=== PATIENT | male | born 1950 | race Caucasian/White ===

== ENCOUNTER 2022-02-05 17:33 | Emergency (ER) | payer MEDICARE, MEDICAID, SELFPAY ==
[2022-02-05 18:10] VITALS: BP 136/73; PULSE 54; RESP 16; TEMP 36.7; O2SAT 97; BMI 22.5
--- NOTE | 2022-02-05 20:34 | CTR_ITS ---
PROCEDURE INFORMATION: Exam: CT Abdomen And Pelvis Without Contrast Exam date and time: 02/05/2022 8:55 PM Age: 71 years old Clinical indication: Abdominal pain; Generalized; Prior surgery; Surgery date: 6+ months; Surgery type: Hernia repair. Appy. ; Patient HX: Sent by pcp for elevated creatinine. C/O diffuse abd pain. TECHNIQUE: Imaging protocol: Computed tomography of the abdomen and pelvis without contrast. Radiation optimization: All CT scans at this facility use at least one of these dose optimization techniques: automated exposure control; mA and/or kV adjustment per patient size (includes targeted exams where dose is matched to clinical indication); or iterative reconstruction. COMPARISON: CR Chest 1 [place] [id number] 09/11/2019 11:44 AM RADIATION DOSE METRICS: Total DLP (mGy-cm): 635.98 FINDINGS: Liver: Normal. No mass. Gallbladder and bile ducts: Normal. No calcified stones. No ductal dilation. Pancreas: Normal. No ductal dilation. Spleen: Calcified splenic granulomas. Adrenal glands: Normal. No mass. Kidneys and ureters: Normal. No hydronephrosis. Stomach and bowel: Unremarkable. No obstruction. No mucosal thickening. Appendix: No evidence of appendicitis. Intraperitoneal space: Unremarkable. No free air. No significant fluid collection. Vasculature: Calcification of the abdominal aorta and/or iliac arteries consistent with atherosclerotic vessel disease. Lymph nodes: Calcified right hilar nodes and/or mediastinal nodes and/or lung granulomas consistent with old granulomatous disease. Urinary bladder: Unremarkable as visualized. Reproductive: Unremarkable as visualized. Bones/joints: Grade 1 anterior non-spondylitic spondylolisthesis of L4 on L5 with central spinal stenosis and prominent facet degenerative changes. Idiopathic S-shaped scoliosis. Soft tissues: Unremarkable. CT/CT kidney stone [id number] IMPRESSION: No acute findings.
--- NOTE | 2022-02-05 20:37 | W.ED.ABDPA2 ---
HPI - Abdominal Pain General: Chief Complaint: Abdominal Pain Stated Complaint: send by PCP for low kidney function Time Seen by Provider: 02/05/22 20:28 Source: patient Mode of arrival: ambulatory Limitations: no limitations History of Present Illness: 71-year-old male who states that over the last 2 days has been having episodic abdominal pains. He states been sharp pains in the center of his abdomen he states that currently is resolved not having any pain. States he saw his PCP yesterday though and his PCP nehemiah blood work called him and told him to come up here as his kidney function showed an elevated creatinine. He has had no vomiting no diarrhea denies any chest pain or fever he states he noticed some blood in his urine Associated Symptoms: Denies chills, diarrhea, dysuria, fever(s), nausea and vomiting Review of Systems Const: Denies: fever(s), chills, body aches or change in appetite Eyes: Denies: blurry vision or eye discomfort ENMT: Denies: throat pain or dental pain Card: Denies: chest pain Resp: Denies: dyspnea GI: Reports: abdominal pain; Denies: nausea, vomiting or diarrhea : Denies: dysuria Musc: Denies: neck pain or back pain Skin/Breast: Denies: rash Neuro: Denies: headache(s) Psych: Denies: depression Maurciio/Lymph: Denies: easy bruising All/Imm: Denies: urticaria PFSH ED PFSH: Medical History No pertinent past medical history Social History Substance/Drug Use: former Physical Exam Const: COMMON NORMALS: no acute distress, patient oriented x3 and healthy appearing HENMT: COMMON NORMALS: normocephalic and atraumatic HEAD & SCALP: normocephalic and atraumatic Eye: COMMON NORMALS: Equal, round and reactive pupils present and EOMs intact bilaterally PUPIL: Yes Equal, round and reactive pupils present Neck/C-Spine: COMMON NORMALS: full ROM and supple Chest: COMMONS NORMALS: normal inspection of the chest and normal palpation of entire chest wall Resp: COMMON NORMALS: normal respiratory effort, No retractions, No use of accessory muscles and clear to auscultation bilaterally AUSCULTATION: clear to auscultation bilaterally Cardio: COMMON NORMALS: regular rate, regular rhythm and No murmurs present (Cardio) RATE: regular rate RHYTHM: regular rhythm GI: COMMON NORMALS: Normal to inspection, nondistended, normoactive bowel sounds present, Soft to palpation, non-tender and no masses PALPATION: Yes Soft to palpation Extremity: COMMON NORMALS: normal to inspection and full ROM Neuro: COMMON NORMALS: patient oriented x3, moves all extremities and no focal motor deficits Psych: COMMON NORMALS: mental status grossly normal, Normal thought process present and cooperative THOUGHT PROCESS: Normal thought process present Skin: COMMON NORMALS: no rashes or lesions noted and no wounds GENERAL SKIN EXAM: no rashes or lesions noted Course Vital Signs: Vital signs: Vital Signs Temperature 98.0 F 02/05/22 18:10 Pulse Rate 54 L 02/05/22 20:56 Respiratory Rate 18 02/05/22 20:56 Blood Pressure 148/93 02/05/22 20:56 Pulse Oximetry 98 02/05/22 20:56 MDM - Abdominal Pain Medical Decision Making Patient presents for some abdominal pain CT showed no acute findings he does have some hematuria creatinine is mildly elevated he has no signs of acute renal failure potassium is normal he is able to urinate without any difficulty we will get him follow-up with urology for his hematuria and nephrology he is stable for discharge return if worsening. Lab Data : 02/05/22 20:43 02/05/22 20:43 Labs/Radiology: Radiology Impressions Abdomen/Pelvis CT 02/05/22 20:34 IMPRESSION: No acute findings. Laboratory Results WBC 6.7 10^3/uL (4.0-10.0) 02/05/22 20:43 RBC 4.16 10^6/uL (4.1-5.3) 02/05/22 20:43 Hgb 13.4 g/dL (11.7-16.6) 02/05/22 20:43 Hct 40.4 % (42.0-52.0) L 02/05/22 20:43 MCV 97.1 fl (80-94) H 02/05/22 20:43 MCH 32.2 pg (28.0-34.0) 02/05/22 20:43 MCHC 33.2 g/dL (30.0-36.0) 02/05/22 20:43 RDW 13.2 % (12.1-15.1) 02/05/22 20:43 Plt Count 268 10^3/cmm (130-400) 02/05/22 20:43 MPV 10.1 fL (7.4-10.4) 02/05/22 20:43 Neut % (Auto) 54.3 % 02/05/22 20:43 Lymph % (Auto) 31.3 % 02/05/22 20:43 [place] % (Auto) 6.9 % 02/05/22 20:43 Eos % (Auto) 5.9 % 02/05/22 20:43 Baso % (Auto) 1.1 % 02/05/22: Neut # (Auto) 3.62 10^3/uL (1.8-7.7) 02/05/22 20:43 Lymph # (Auto) 2.1 10^3/uL (0.8-4.8) 02/05/22 20:43 [place] # (Auto) 0.5 10^3/uL (0.2-0.9) 02/05/22 20:43 Eos # (Auto) 0.4 10^3/uL (0.0-0.8) 02/05/22 20:43 Baso # (Auto) 0.1 10^3/uL (0.0-0.1) 02/05/22 20:43 Nucleated RBC % (auto) 0 % 02/05/22 20: Nucleated RBCs # 0.0 /100WBC 02/05/22 20:43 Sodium 138 mmol/L (136-145) 02/05/22 20:43 Potassium 4.0 mmol/L (3.5-5.1) 02/05/22 20:43 Chloride 102 mmol/L (98-107) 02/05/22 20:43 Carbon Dioxide 23 mmol/L (22-29) 02/05/22 20:43 Anion Gap 17.0 (5-19) 02/05/22 20:43 BUN 17 mg/dL (8-23) 02/05/22 20:43 Creatinine 2.5 mg/dL (0.7-1.2) H 02/05/22 20:43 GFR Calculation 25.7 mL/min (90-130) L 02/05/22 20:43 Glucose 88 mg/dL (65-115) 02/05/22 20:43 Calculated Osmolality 287 mOsm/kg (285-295) 02/05/22 20:43 Calcium 8.7 mg/dL (8.5-10.5) 02/05/22 20:43 Total Bilirubin 0.5 mg/dL (0.15-1.2) 02/05/22 20:43 AST 41 U/L (0-40) H 02/05/22 20:43 ALT 13 U/L (0-41) 02/05/22 20:43 Alkaline Phosphatase 105 IU/L (40-130) 02/05/22 20:43 Total Protein 7.6 g/dL (6.6-8.7) 02/05/22 20:43 Albumin 4.6 g/dL (3.5-5.2) 02/05/22 20:43 Globulin 3.0 g/dL (1.3-4.6) 02/05/22 20:43 Lipase 40 U/L (13-60) 02/05/22 20:43 Urine Color Yellow (Yellow) 02/05/22 21:39 Urine Appearance Clear (CLEAR) 02/05/22 21:39 Urine pH 5 (5-7) 02/05/22 21:39 Ur Specific [place] 1.015 (1.005-1.030) 02/05/22 21:39 Urine Protein Neg (Negative) 02/05/22 21:39 Urine Glucose (UA) Norm (Normal) 02/05/22 21:39 Urine Ketones Negative (Negative) 02/05/22 21:39 Urine Blood 2+ (Negative) H 02/05/22 21:39 Urine Nitrate Negative (Negative) 02/05/22 21:39 Urine Bilirubin Neg (Negative) 02/05/22 21:39 Urine Urobilinogen Norm mg/dL (Negative) 02/05/22 21:39 Ur Leukocyte Esterase Negative (Negative) 02/05/22 21:39 Amorphous Sediment Not Reportable 02/05/22 21:39 Discharge Plan Discharge Patient Disposition: Home Clinical Impression: Abdominal pain, Creatinine elevation, Hematuria Discharge Orders: Discharge ED (Routine); Ordered 02/05/22 Ordered By: Marivel Elizalde Referrals: Ronnie Mckeon MD [Physician] - 1-3 days Amos Parker MD [Primary Care Provider] - 1-3 days Discharge Diet: Advance as tolerated Discharge Activity: Resume usual activity Patient Instructions: Abdominal Pain (ED) Coding Level of Care Code ED Geological Manager for Chg Fwd Exam Comprehensive
[2022-02-05 20:48] LABS: Basophils # 0.1 10^3/uL (0.0-0.1); Basophils % 1.1 %; Eosinophils # 0.4 10^3/uL (0.0-0.8); Eosinophils % 5.9 %; Hematocrit 40.4 % (42.0-52.0); Hemoglobin 13.4 g/dL (11.7-16.6); Lymphocytes # 2.1 10^3/uL (0.8-4.8); Lymphocytes % 31.3 %; Mean Corpuscular HGB Conc 33.2 g/dL (30.0-36.0); Mean Corpuscular Hemoglobin 32.2 pg (28.0-34.0); Mean Corpuscular Volume 97.1 fl (80-94); Mean Platelet Volume 10.1 fL (7.4-10.4); Monocytes # 0.5 10^3/uL (0.2-0.9); Monocytes % 6.9 %; Neutrophils # 3.62 10^3/uL (1.8-7.7); Neutrophils % 54.3 %; Nucleated Red Blood Cells % 0 %; Platelet Count 268 10^3/cmm (130-400); Red Blood Count 4.16 10^6/uL (4.1-5.3); Red Cell Distribution Width 13.2 % (12.1-15.1); White Blood Count 6.7 10^3/uL (4.0-10.0)
[2022-02-05 20:56] VITALS: BP 148/93; PULSE 54; RESP 18; O2SAT 98
[2022-02-05 21:06] LABS: Alanine Aminotransferase 13 U/L (0-41); Albumin Level 4.6 g/dL (3.5-5.2); Alkaline Phosphatase 105 IU/L (40-130); Aspartate Amino Transferase 41 U/L (0-40); Blood Urea Nitrogen 17 mg/dL (8-23); Calcium 8.7 mg/dL (8.5-10.5); Carbon Dioxide 23 mmol/L (22-29); Chloride 102 mmol/L (98-107); Glomerular Filtration Rate 25.7 mL/min (90-130); Glucose 88 mg/dL (65-115); Lipase 40 U/L (13-60); Osmolality Calculated 287 mOsm/kg (285-295); Sodium 138 mmol/L (136-145); Total Bilirubin 0.5 mg/dL (0.15-1.2); Total Protein 7.6 g/dL (6.6-8.7)
[2022-02-05] MEDS: sodium chloride 0.9% 1,000 ML 999 ML IV ×2 (21:40→21:48)
[2022-02-05 22:04] LABS: Add Urine Microscopic? YES; Bilirubin Urine Neg (Negative); Blood Urine 2+ (Negative); Glucose Urine UA Norm (Normal); Ketones Urine Negative (Negative); Leukocyte Esterase Urine Negative (Negative); Nitrate Urine Negative (Negative); Protein Urine Neg (Negative); Specific Gravity, Urine 1.015 (1.005-1.030); Urine Appearance Clear (CLEAR); Urine Color Yellow (Yellow); Urobilinogen Urine Norm (Negative); pH Urine 5 (5-7)
[2022-02-05 22:12] LABS: Add Urine Culture? No; Bacteria Urine TRACE /hpf; RBC Urine 0-4 /hpf (0-2); Squamous Epithelial Cell Urine 0-4 /hpf (0-5); WBC Urine 0-4 /hpf (0-5)
[2022-02-05 22:44] VITALS: BP 124/68; PULSE 77; RESP 16; O2SAT 99
--- NOTE | 2022-02-06 10:25 | DCPLANNER ---
Addendum entered by Kelly Borrego 04/30/22 10:15: Patient had a follow up appointment scheduled with urology - patient did attend appointment. Addendum entered by Kelly Borrego 03/09/22 09:40: Patient has a follow up appointment scheduled for Sunday, April 17, 2022 at 8:[address] Mckeon at urology. Clinic will call patient with appointment information. Original Note: manager imaging had message to schedule a follow up appointment for patient with urology. manager imaging sent patients information to the front office staff at urology. Patients information will be printed and reviewed. Clinic will call patient with appointment information.
== END 2022-02-05 22:45 | disposition home or self-care (01) ==
PROVIDERS: Emergency Provider Emergency Medicine; PCP Family Medicine
DX: R10.9 Unspecified abdominal pain (principal); R94.4 Abnormal results of kidney function studies; R31.9 Hematuria, unspecified
CPT/HCPCS: 74176; 80053; 81001; 83690; 85025; 96360; 96361; 99284; J7030

== ENCOUNTER 2022-03-09 17:15 | Inpatient (IN) | payer MEDICARE, MEDICAID, SELFPAY ==
[2022-03-09 17:22] VITALS: BP 139/72; PULSE 62; RESP 18; TEMP 36.3; O2SAT 98
--- NOTE | 2022-03-09 19:37 | ED_ITS ---
HPI - General Adult General: Chief complaint: General Medical Stated complaint: dizziness and right side pain Time Seen by Provider: 03/09/22 19:37 History of Present Illness: Mr. Burnham is a 71-year-old gentleman with history of COPD who presents to the emergency department due to generalized symptoms. Symptom onset was gradual approximately 3 days ago. He endorses feeling dizziness which she describes as an off-balance sensation as well as right-sided flank stinging sensation without significant radiation. He reports adequate oral intake without changes in bowel movement or emesis. He has had similar episodes in the past associated with elevated creatinine. Overall co urse of symptoms has worsened. Intensity is moderate to severe. Denies known history of CKD. No other specific changes in health, exacerbating, or alleviating factors identified. Onset (ago): day(s) Severity: moderate Quality: other Pain Consistency: constant Relieving factors: none Exacerbating factors: none Associated symptoms: Reports malaise and other Review of Systems General: Reports: 10 or more systems reviewed and unremarkable except in HPI and below Const: Reports: malaise PFSH ED PFSH: Medical History Alcohol use disorder, moderate, in sustained remission Hematuria Tobacco use disorder Surgical History History of appendectomy Family History Father Alzheimer's dementia Cancer Social History Smoking and tobacco status: current every day smoker Alcohol intake: former Substance/Drug Use: never Physical Exam Const: COMMON NORMALS: patient oriented x3 and alert GENERAL APPEARANCE: cooperative and well developed HENMT: COMMON NORMALS: normocephalic and atraumatic HEAD & SCALP: normocephalic and atraumatic Eye: COMMON NORMALS: conjunctivae normal CONJUNCTIVA: Yes conjunctivae normal SCLERA: sclerae normal Neck/C-Spine: COMMON NORMALS: supple GENERAL: Yes trachea midline Resp: COMMON NORMALS: normal respiratory effort EFFORT & INSPECTION: Yes a ble to speak in complete sentences AUSCULTATION: diminished lung sounds Cardio: COMMON NORMALS: regular rate and regular rhythm RATE: regular rate RHYTHM: regular rhythm GI: COMMON NORMALS: Soft to palpation PALPATION: Yes Soft to palpation, Yes Tenderness to palpation present (GI), No Guarding due to palpation present (GI) and No Rigid due to palpation PERCUSSION: normal to percussion Extremity: GENERAL: Yes normal exam except as noted and No edema Neuro: COMMON NORMALS: patient oriented x3, CN's II-XII intact bilaterally, moves all extremities, no focal motor deficits and no sensory deficits noted SENSORIUM/ORIENTATION: Yes alert and No Orientation impaired Psych: COMMON NORMALS: mental status grossly normal and Normal thought process present THOUGHT PROCESS: Normal thought process present Course ED course: - Patient was seen and evaluated by me at bedside - Patient placed on cardiac monitors, IV access obtained - Initial evaluation notable for exam as above. Bradycardia of unclear etiology - Labs personally interpreted by me - Labs notable for no significant hematologic abnormality. No electrolyte abnormality on metabolic panel however creatinine is significantly elevated from previous and there is evidence of metabolic stress which is mild. Hematuria persists with no evidence of urinary tract infection. - Imaging notable for negative head CT and renal stone protocol abdominal/pelvis CT. - Upon serial reexamination after treatment the patient was similar - Based on patient history, evaluation, and testing as interpreted the most likely cause of the patient's condition is KAREN on CKD of unclear etiology - The results of ED evaluation were discussed with the patient including plan for admission due to requirement for level of care not available if discharged to prevent significant worsening/deterioration. - Admitting service was contacted and Dr Reich with the hospitalist service agreed to admit the patient - Patient was admitted without further deterioration or significant events. Note: Click bubbles or prepopulated silva in note writing are used for assistance with data collection and billing and are inherently more limited than narrative and other text portions of this note. Please use narrative for additional clinical history and defer to narrative/free test for any case of contradictory information. If information appears in only free text or click bubble it should be considered present or absent as reported. Please contact note data analyst report writer for clarifications of clinical information or contradictory information. MDM is a brief summary, contradictory or erroneous seeming information should be clarified and full note should be reviewed. Vital Signs: Vital signs: Vital Signs Temperature 97.3 F L 03/09/22 17:22 Pulse Rate 45 L 03/10/22 00:05 Respiratory Rate 15 03/10/22 00:05 Blood Pressure 152/79 03/10/22 00:05 Pulse Oximetry 95 03/10/22 00:05 [facility] - General Adult Medical Decision Making 71-year-old gentleman presenting with generalized symptoms including unsteadiness, abdominal pain, and dark urine consistent with prior episode of elevated creatinine. Patient's creatinine continues to be elevated above estimated baseline of unclear etiology. Admitted for further management. Medical Records I reviewed the patient's medical records. Lab Data I reviewed the patient's lab results. : 03/09/22 19:45 03/09/22 19:45 Radiology Impressions Abdomen/Pelvis CT 03/09/22 20:27 IMPRESSION: 1. No acute finding. 2. Diverticulosis of the colon. Head CT 03/09/22 20:27 IMPRESSION: No acute intracranial abnormality. Laboratory Results WBC 6.4 10^3/uL (4.0-10.0) 03/09/22 19:45 RBC 4.32 10^6/uL (4.1-5.3) 03/09/22 19:45 Hgb 13.9 g/dL (11.7-16.6) 03/09/22 19:45 Hct 40.1 % (42.0-52.0) L 03/09/22 19:45 MCV 92.8 fl (80-94) 03/09/22 19:45 MCH 32.2 pg (28.0-34.0) 03/09/22 19:45 MCHC 34.7 g/dL (30.0-36.0) 03/09/22 19:45 RDW 12.9 % (12.1-15.1) 03/09/22 19:45 Plt Count 258 10^3/cmm (130-400) 03/09/22 19:45 MPV 10.1 fL (7.4-10.4) 03/09/22 19:45 Neut % (Auto) 62.3 % 03/09/22 19:45 Lymph % (Auto) 25.5 % 03/09/22 19:45 [place] % (Auto) 9.6 % 03/09/22 19:45 Eos % (Auto) 1.4 % 03/09/22 19:45 Baso % (Auto) 0.9 % 03/09/22 19:45 Neut # (Auto) 4.01 10^3/uL (1.8-7.7) 03/09/22 19:45 Lymph # (Auto) 1.6 10^3/uL (0.8-4.8) 03/09/22 19:45 [place] # (Auto) 0.6 10^3/uL (0.2-0.9) 03/09/22 19:45 Eos # (Auto) 0.1 10^3/uL (0.0-0.8) 03/09/22 19:45 Baso # (Auto) 0.1 10^3/uL (0.0-0.1) 03/09/22 19:45 Nucleated RBC % (auto) 0 % 03/09/22 19:45 Nucleated RBCs # 0.0 /100WBC 03/09/22 19:45 Sodium 136 mmol/L (136-145) 03/09/22 19:45 Potassium 4.5 mmol/L (3.5-5.1) 03/09/22 19:45 Chloride 99 mmol/L (98-107) 03/09/22 19:45 Carbon Dioxide 21 mmol/L (22-29) L 03/09/22 19:45 Anion Gap 20.5 (5-19) H 03/09/22 19:45 BUN 44 mg/dL (8-23) H 03/09/22 19:45 Creatinine 3.8 mg/dL (0.7-1.2) H 03/09/22 19:45 GFR Calculation 15.9 mL/min (90-130) L 03/09/22 19:45 Glucose 106 mg/dL (65-115) 03/09/22 19:45 Calculated Osmolality 294 mOsm/kg (285-295) 03/09/22 19:45 Calcium 9.3 mg/dL (8.5-10.5) 03/09/22 19:45 Total Bilirubin 0.4 mg/dL (0.15-1.2) 03/09/22 19:45 AST 69 U/L (0-40) H 03/09/22 19:45 ALT 23 U/L (0-41) 03/09/22 19:45 Alkaline Phosphatase 92 IU/L (40-130) 03/09/22 19:45 Total Protein 7.7 g/dL (6.6-8.7) 03/09/22 19:45 Albumin 4.9 g/dL (3.5-5.2) 03/09/22 19:45 Globulin 2.8 g/dL (1.3-4.6) 03/09/22 19:45 Urine Color Yellow (Yellow) 03/09/22 22:48 Urine Appearance Clear (CLEAR) 03/09/22 22:48 Urine pH 5 (5-7) 03/09/22 22:48 Ur Specific [place] 1.025 (1.005-1.030) 03/09/22 22:48 Urine Protein Trace (Negative) 03/09/22 22:48 Urine Glucose (UA) Norm (Normal) 03/09/22 22:48 Urine Ketones Negative (Negative) 03/09/22 22:48 Urine Blood 3+ (Negative) H 03/09/22 22:48 Urine Nitrate Negative (Negative) 03/09/22 22:48 Urine Bilirubin Neg (Negative) 03/09/22 22:48 Urine Urobilinogen Norm mg/dL (Negative) 03/09/22 22:48 Ur Leukocyte Esterase Negative (Negative) 03/09/22 22:48 Urine RBC 0-4 /hpf (0-2) H 03/09/22 22:48 Urine WBC 0-4 /hpf (0-5) H 03/09/22 22:48 Ur Squamous Epith Cells 0-4 /hpf (0-5) H 03/09/22 22:48 Amorphous Sediment 1+ /hpf 03/09/22 22:48 Urine Bacteria Trace /hpf (NONE) 03/09/22 22:48 Hyaline Casts 0-4 /lpf H 03/09/22 22:48 Discharge Plan Discharge Patient Disposition: Placed in Observation Admit Provider: Giles Reich Clinical Impression: Acute kidney injury superimposed on chronic kidney disease Coding Level of Care Code ED Press And Blow Machine Tender for Erik Mcguire
[2022-03-09 20:05] LABS: Basophils # 0.1 10^3/uL (0.0-0.1); Basophils % 0.9 %; Eosinophils # 0.1 10^3/uL (0.0-0.8); Eosinophils % 1.4 %; Hematocrit 40.1 % (42.0-52.0); Hemoglobin 13.9 g/dL (11.7-16.6); Lymphocytes # 1.6 10^3/uL (0.8-4.8); Lymphocytes % 25.5 %; Mean Corpuscular HGB Conc 34.7 g/dL (30.0-36.0); Mean Corpuscular Hemoglobin 32.2 pg (28.0-34.0); Mean Corpuscular Volume 92.8 fl (80-94); Mean Platelet Volume 10.1 fL (7.4-10.4); Monocytes # 0.6 10^3/uL (0.2-0.9); Monocytes % 9.6 %; Neutrophils # 4.01 10^3/uL (1.8-7.7); Neutrophils % 62.3 %; Nucleated Red Blood Cells % 0 %; Platelet Count 258 10^3/cmm (130-400); Red Blood Count 4.32 10^6/uL (4.1-5.3); Red Cell Distribution Width 12.9 % (12.1-15.1); White Blood Count 6.4 10^3/uL (4.0-10.0)
[2022-03-09 20:09] VITALS: BP 149/84; PULSE 45; RESP 16; O2SAT 99
[2022-03-09 20:22] LABS: Alanine Aminotransferase 23 U/L (0-41); Albumin Level 4.9 g/dL (3.5-5.2); Alkaline Phosphatase 92 IU/L (40-130); Anion Gap 20.5 (5-19); Aspartate Amino Transferase 69 U/L (0-40); Blood Urea Nitrogen 44 mg/dL (8-23); Calcium 9.3 mg/dL (8.5-10.5); Carbon Dioxide 21 mmol/L (22-29); Chloride 99 mmol/L (98-107); Globulin 2.8 g/dL (1.3-4.6); Glomerular Filtration Rate 15.9 mL/min (90-130); Glucose 106 mg/dL (65-115); Osmolality Calculated 294 mOsm/kg (285-295); Potassium 4.5 mmol/L (3.5-5.1); Sodium 136 mmol/L (136-145); Total Bilirubin 0.4 mg/dL (0.15-1.2); Total Protein 7.7 g/dL (6.6-8.7)
--- NOTE | 2022-03-09 20:27 | CTR_ITS ---
PROCEDURE INFORMATION: Exam: CT Head Without Contrast Exam date and time: 03/09/2022 8:49 PM Age: 71 years old Clinical indication: Dizziness TECHNIQUE: Imaging protocol: Computed tomography of the head without contrast. Radiation optimization: All CT scans at this facility use at least one of these dose optimization techniques: automated exposure control; mA and/or kV adjustment per patient size (includes targeted exams where dose is matched to clinical indication); or iterative reconstruction. COMPARISON: No relevant prior studies available. RADIATION DOSE METRICS: Total DLP (mGy-cm): 1819.31 FINDINGS: Brain: Normal. No hemorrhage. Unremarkable white matter. No mass effect. Cerebral ventricles: No ventriculomegaly. Paranasal sinuses: Visualized sinuses are unremarkable. No fluid levels. Mastoid air cells: Visualized mastoid air cells are well aerated. Bones/joints: Unremarkable. No acute fracture. Soft tissues: Unremarkable. CT/CT head wo con* [id number] IMPRESSION: No acute intracranial abnormality.
--- NOTE | 2022-03-09 20:27 | CTR_ITS ---
PROCEDURE INFORMATION: Exam: CT Abdomen And Pelvis Without Contrast Exam date and time: 03/09/2022 8:54 PM Age: 71 years old Clinical indication: Patient HX: Dark urine x 3 days HX of kidney failure at a previous time. Cre today 3.8; Additional info: R flank pain TECHNIQUE: Imaging protocol: Computed tomography of the abdomen and pelvis without contrast. Radiation optimization: All CT scans at this facility use at least one of these dose optimization techniques: automated exposure control; mA and/or kV adjustment per patient size (includes targeted exams where dose is matched to clinical indication); or iterative reconstruction. COMPARISON: CT kidney stone [id number] 02/05/2022 8:55 PM RADIATION DOSE METRICS: Total DLP (mGy-cm): 558.57 FINDINGS: Lungs: Right middle lobe calcified granuloma. Liver: Normal. No mass. Gallbladder and bile ducts: Normal. No calcified stones. No ductal dilation. Pancreas: Normal. No ductal dilation. Spleen: Calcified granulomas in the spleen. Adrenal glands: Normal. No mass. Kidneys and ureters: Normal. No hydronephrosis. Stomach and bowel: Diverticulosis of the distal colon. No diverticulitis. The stomach and small bowel are unremarkable. No wall thickening or obstruction. Appendix: The appendix is not visualized. No secondary signs of appendicitis. Intraperitoneal space: Unremarkable. No free air. No significant fluid collection. Vasculature: Unremarkable. No abdominal aortic aneurysm. Lymph nodes: Unremarkable. No enlarged lymph nodes. Urinary bladder: Unremarkable as visualized. Reproductive: Unremarkable as visualized. Bones/joints: Old right rib fractures. No acute fracture. Soft tissues: Small fat containing left inguinal hernia. CT/CT kidney stone [id number] IMPRESSION: 1. No acute finding. 2. Diverticulosis of the colon.
[2022-03-09 21:30] VITALS: BP 167/78; PULSE 41; RESP 16; O2SAT 99
[2022-03-09] MEDS: sodium chloride 0.9% 1,000 ML 999 ML IV (21:35)
[2022-03-09 22:54] VITALS: BP 157/87; PULSE 42; RESP 16; O2SAT 99
[2022-03-09 22:57] LABS: Add Urine Culture? No; Add Urine Microscopic? YES; Amorphous Sediment Urine 1+ /hpf; Bacteria Urine TRACE /hpf; Bilirubin Urine Neg (Negative); Blood Urine 3+ (Negative); Glucose Urine UA Norm (Normal); Hyaline Casts Urine 0-4 /lpf; Ketones Urine Negative (Negative); Leukocyte Esterase Urine Negative (Negative); Nitrate Urine Negative (Negative); Protein Urine Trace (Negative); RBC Urine 0-4 /hpf (0-2); Specific Gravity, Urine 1.025 (1.005-1.030); Squamous Epithelial Cell Urine 0-4 /hpf (0-5); Urine Appearance Clear (CLEAR); Urine Color Yellow (Yellow); Urobilinogen Urine Norm (Negative); WBC Urine 0-4 /hpf (0-5); pH Urine 5 (5-7)
--- NOTE | 2022-03-09 23:03 | P.HP_ITS ---
Providers/Chief Complaint Admitting Physician: Giles Reich MD Primary Care Provider: Amos Parker MD Chief Complaint: dizziness and right side pain History of Present Illness Ras Burnham is a 71 year old male with past medical history significant for hematuria and tobacco use disorder who presents to the emergency department complaining of generalized weakness x3 days. Patient denies any known inciting incident. Endorses associated symptoms of malaise, dizziness, and intermittent right lower quadrant abdominal pains. He describes the abdominal pains as severe at times. He states they would last sometimes minutes up to hours. He denies any alleviating or aggravating factors. In the ED, labs revealed acute kidney injury on suspected chronic kidney disease with an unknown renal baseline. Patient denies prior history of known chronic kidney disease. He endorses good p.o. intake. Reports decreased urinary output over the past 3 days. Denies any recent changes in medications. Denies taking any [id number]-kolimfe pain medication. Denies taking any supplements and minerals. Denies family history of kidney disease. He has a history of recently diagnosed hematuria for which he has an upcoming urology appointment for. Patient states that he uses inhalers but he is unsure if he has COPD. He reports he continues to smoke. States he smokes a variable amount each day depending on what he is doing. He estimates he smokes about half a pack to 1 pack/day. We discussed smoking cessation. He is not interested in quitting. He states that he is quit multiple times before always using cold turkey method. Discussed harmful effects on his health. Advised cessation. Discussed treatment options including nicotine replacement patient agrees to nicotine p [facility]. Patient denies any fevers, chills, chest pain, shortness of breath, or headache. Review of Systems Narrative: A complete review of systems was obtained and is negative except as stated in HPI. Medications/Allergies Home Medications Medication Instructions Recorded Confirmed Last Taken Type albuterol sulfate 90 mcg/actuation 1 puff INHALATION QID PRN 03/09/22 03/09/22 Unknown History aerosol inhaler (Ventolin HFA) budesonide-formoterol HFA 160 2 puff INHALATION BID 03/09/22 03/09/22 Unknown History mcg-4.5 mcg/actuation aerosol inhaler (Symbicort) cetirizine 10 mg tablet 10 mg PO DAILY PRN 03/09/22 03/09/22 Unknown History Allergies Allergy/AdvReac Type Severity Reaction Status Date / Time No Known Allergies Allergy Verified 03/09/22 20:10 PFSH Acute PFSH: Medical History (Updated 03/09/22 @ 23:30 by Giles Reich MD) Alcohol use disorder, moderate, in sustained remission Hematuria Tobacco use disorder Surgical History (Updated 03/09/22 @ 23:36 by Giles Reich MD) History of appendectomy Family History (Updated 03/09/22 @ 23:37 by Giles Reich MD) Father Alzheimer's dementia Cancer Social History (Updated 03/09/22 @ 23:27 by Giles Reich MD) Smoking and tobacco status: current every day smoker Alcohol intake: former Substance/Drug Use: never Vitals/I&O/Wt Last Vital Signs Temp 97.3 F L 03/09/22 17:22 Pulse 42 L 03/09/22 22:54 Resp 16 03/09/22 22:54 BP 157/87 03/09/22 22:54 Pulse Ox 99 03/09/22 22:54 Weight last 48 hrs Weight 67.132 kg Physical Exam Narrative: General: Patient is awake. Appears fatigued. Head: Normocephalic. Atraumatic. EOM intact. Neck: No JVD. Cardiovascular: RRR. No gallops. No murmurs. No peripheral edema. Lungs: Clear to auscultation, no use of accessory muscles, no crackles or whe ezes. Skin: No jaundice. No rashes. Abdomen: Normal bowel sounds, abdomen soft and nontender. Genito Urinary: Genital exam not performed since complaints not related. Rectal: Rectal exam not performed since no symptoms indicated blood loss. Extremeties: No cyanosis or clubbing. Musculoskeletal: 5/5 strength, normal range of motion, no swollen or erythematous joints. Neurological: Moves all 4 extremities. No myoclonus. Data : 03/09/22 19:45 03/09/22 19:45 A&P Assessment and plan (1) Acute kidney injury superimposed on chronic kidney disease: Admission creatinine 3.8 Baseline creatinine unclear, 1.8 in 08/2019, 2.5 in 01/2022 CT abdomen/pelvis plain negative for acute findings Renal ultrasound ordered Urine electrolytes Strict I's and O's Daily weights Avoid nephrotoxins Anticipate nephrology consultation in a.m. Status: Acute (2) High anion gap metabolic acidosis: Secondary to acute kidney injury Renal panel in a.m. Status: Acute (3) Generalized weakness: Suspect secondary to renal dysfunction Status: Acute (4) Transaminitis: Etiology unclear Repeat liver function enzymes in a.m. Status: Acute (5) Hematuria: Has outpatient follow-up with urology Status: Inactive (6) Elevated blood pressure reading without diagnosis of hypertension: Suspect hypertension Monitor blood pressure closely Status: Acute (7) Tobacco use disorder: Associated with suspected COPD Smoking cessation discussed for greater than 10 minutes Nicotine patch ordered Albuterol nebs as needed Status: Inactive Plan DVT prophylaxis: Heparin CODE STATUS: Full code Attestations Medical Necessity Statement*: Patient presents with KAREN on CKD of unclear etiology with hospitalization expected to cross 2 midnights. Coding Level of Care Code Acute Conveyor Technician for Erik Mcgu[employer] Diagnoses Acute kidney injury superimposed on chronic kidney disease N17.9; N18.9 High anion gap metabolic acidosis E87.2 Transaminitis R74.01 Hematuria R31.9 Elevated blood pressure reading without diagnosis of hypertension R03.0 Tobacco use disorder F17.200 Generalized weakness R53.1
[2022-03-10] VITALS (8 sets, daily range): BP systolic 124–152; BP diastolic 74–79; PULSE 42–53; RESP 15–18; TEMP 36.4–36.9; O2SAT 95–100
[2022-03-10] MEDS: heparin 5,000 unit/mL INJ 1 mL 5000 UNIT SUBCUT ×2 (00:22→12:24)
[2022-03-10] MEDS: sodium chloride 0.9% 1,000 ML 75 ML IV ×2 (00:22→14:22)
[2022-03-10] MEDS: nicotine 21 mg Patch 1 PATCH TRANSDERMA (00:22)
--- NOTE | 2022-03-10 00:55 | PC.NURSE ---
i reported low heart rate 43 to nurse
--- NOTE | 2022-03-10 03:26 | PC.NURSE ---
Dr. Reich notified of patient's heart rate 30s-40s. Patient is asymptomatic. Other vitals stable.
--- NOTE | 2022-03-10 03:40 | US_ITS ---
WS: [id number] RENAL ULTRASOUND HISTORY: KAREN on CKD COMPARISON: CT 03/09/2022 TECHNIQUE: 2-D and color Doppler imaging of the kidney submitted. Right kidney: 7.3 cm x 3.3 cm x 4.3 cm. Mild atrophy without cortical thinning. No hydronephrosis or mass. Left kidney: 7.8 cm x 3.4 cm x 3.9 cm. Mild atrophy. No hydronephrosis or mass. Increased echogenicity and poor cortical medullary different iation is mild. Aorta: Atherosclerosis. Urinary Bladder: Moderately well distended urinary bladder. US/US renal BI* [id number] IMPRESSION: 1. Mild bilateral renal atrophy with no hydronephrosis. 2. Well-distended urinary bladder.
[2022-03-10 06:09] LABS: Alanine Aminotransferase 18 U/L (0-41); Albumin Level 3.8 g/dL (3.5-5.2); Alkaline Phosphatase 76 IU/L (40-130); Aspartate Amino Transferase 48 U/L (0-40); Blood Urea Nitrogen 40 mg/dL (8-23); Calcium 8.4 mg/dL (8.5-10.5); Carbon Dioxide 18 mmol/L (22-29); Chloride 104 mmol/L (98-107); Globulin 2.4 g/dL (1.3-4.6); Glomerular Filtration Rate 20.1 mL/min (90-130); Glucose 104 mg/dL (65-115); Magnesium 2.1 mg/dL (1.7-2.3); Osmolality Calculated 292 mOsm/kg (285-295); Sodium 136 mmol/L (136-145); Total Bilirubin 0.4 mg/dL (0.15-1.2); Total Protein 6.2 g/dL (6.6-8.7)
[2022-03-10 11:39] LABS: Creatine Phosphokinase 1394 U/L (39-308)
[2022-03-10] MEDS: acetaminophen 325 mg Tablet 650 MG PO (12:21)
[2022-03-10] MEDS: famotidine 20 mg Tablet 40 MG PO (12:22)
--- NOTE | 2022-03-10 12:40 | ECG_ITS ---
[facility] Test Date: 2022-03-10 Pat Name: Ras Burnham Department: Room: 278 Gender: Male Director Trading: : 1950 Requested By: Amari Altamirano Order Number: [id number] Kanika MD: Jorge Guevara M.D. Measurements Intervals [place] Rate: 49 P: 30 [place]: 150 QRS: 11 QRSD: 90 T: 45 QT: 469 QTc: 427 Interpretive Statements SINUS BRADYCARDIA Compared to ECG 09/11/2019 13:38:46 Sinus rhythm no longer present Myocardial infarct finding no longer present Electronically Signed On 03-10-2022 18:35:22 CDT by Jorge Guevara M.D. [id number]
--- NOTE | 2022-03-10 14:26 | P.PN_ITS ---
Subjective Subjective: Patient was seen this morning, he tells me that he continues to not feel well, he tells me that he worked outside for the last few days, it was quite hot outside, that is his job, denies any drug use, denies any alcoholism, denies any falls or injuries, denies any history of a large prostate, Vitals/I&O/Wt Last Vital Signs Temp 97.7 F 03/10/22 11:56 Pulse 53 L 03/10/22 11:56 Resp 16 03/10/22 11:56 BP 142/74 03/10/22 11:56 Pulse Ox 96 03/10/22 11:56 03/09/22 03/10/22 03/10/22 22:59 06:59 14:59 Intake Total 1000 / 1000 1480 / 1480 Output Total 300 / 300 Balance 1000 / 1000 1180 / 1180 Weight last 48 hrs Weight 66.361 kg Weight 67.132 kg Physical Exam Const: COMMON NORMALS: no acute distress and patient oriented x3 Resp: COMMON NORMALS: normal respiratory effort, No retractions, No use of accessory muscles and clear to auscultation bilaterally AUSCULTATION: clear to auscultation bilaterally Cardio: COMMON NORMALS: regular rate, regular rhythm, S1 normal heart sound present and S2 normal heart sound present RATE: regular rate RHYTHM: regular rhythm HEART SOUNDS: S1 normal heart sound present and S2 normal heart sound present GI: COMMON NORMALS: Normal to inspection, nondistended, normoactive bowel sounds present, Soft to palpation and non-tender PALPATION: Yes Soft to palpation Extremity: COMMON NORMALS: no pedal edema Neuro: COMMON NORMALS: patient oriented x3 Psych: COMMON NORMALS: mental status grossly normal Data : 03/09/22 19:45 03/10/22 05:28 A&P Assessment and plan (1) Acute kidney injury superimposed on chronic kidney disease: Secondary to rhabdomyolysis, dehydration Admission creatinine 3.8 Baseline creatinine unclear, 1.8 in 08/2019, 2.5 in 01/2022 CT abdomen/pelvis plain negative for acute findings Renal ultrasound shows distended bladder Urine electrolytes Strict I's and O's Daily weights Avoid nephrotoxins IV fluids monitor urine output monitor renal function Status: Acute (2) High anion gap metabolic acidosis: Secondary to acute kidney injury Renal panel in a.m. Status: Acute (3) Generalized weakness: Suspect secondary to renal dysfunction Status: Acute (4) Transaminitis: Likely secondary dehydration Repeat liver function enzymes in a.m. Status: Acute (5) Hematuria: Has outpatient follow-up with urology Status: Inactive (6) Elevated blood pressure reading without diagnosis of hypertension: Suspect hypertension Monitor blood pressure closely Status: Acute (7) Tobacco use disorder: Associated with suspected COPD Smoking cessation discussed for greater than 10 minutes Nicotine patch ordered Albuterol nebs as needed Status: Inactive (8) Rhabdomyolysis: Status: Acute Plan DVT prophylaxis: Heparin CODE STATUS: Full code Attestations Medical Necessity Statement*: Patient requires hospitalization due to dehydration, acute renal failure, KAREN, inpatient, greater than 2 midnights Coding Level of Care Code Acute Talent Acquisition Administrator for [facility] Fwd Diagnoses Acute kidney injury superimposed on chronic kidney disease N17.9; N18.9 High anion gap metabolic acidosis E87.2 Generalized weakness R53.1 Transaminitis R74.01 Hematuria R31.9 Elevated blood pressure reading without diagnosis of hypertension R03.0 Tobacco use disorder F17.200 Rhabdomyolysis M62.82
--- NOTE | 2022-03-10 19:39 | PC.NURSE ---
Shift Note Frequent safety and comfort rounds continue. Orders and/or nursing care completed as indicated. Patient monitored for response to intervention and treatment(s). Education provided includes to call nurse for any recurrent heartburn, chest discomfort or pains and dizziness. Patient and/or applications sales representative verbalizes understanding. Notified on pt's episode of heartburn w/chest discomfort. EKG was taken, pepcid order was given. Notified Dr on pt's sinus bradycardia in 40s. Will continue to monitor.
[2022-03-10 20:30] LABS: Potassium, Radom Urine 19 mmol/L; Urine Creatinine 104 mg/dL (39-259); Urine Random Chloride 88 mmol/L; Urine Random Sodium 101 mmol/L
[2022-03-10 20:33] LABS: Urea Nitrogen,Urine Random 626 mg/dL
[2022-03-11] VITALS: BP 105/55; PULSE 47; RESP 16; TEMP 36.7; O2SAT 94
[2022-03-11] MEDS: heparin 5,000 unit/mL INJ 1 mL 5000 UNIT SUBCUT (00:16)
[2022-03-11] MEDS: sodium chloride 0.9% 1,000 ML 75 ML IV (02:51)
[2022-03-11 03:31] VITALS: BP 129/71; PULSE 48; RESP 16; TEMP 36.7; O2SAT 97
[2022-03-11 03:35] LABS: Basophils # 0.1 10^3/uL (0.0-0.1); Basophils % 0.9 %; Eosinophils # 0.2 10^3/uL (0.0-0.8); Eosinophils % 4.4 %; Hematocrit 34.5 % (42.0-52.0); Hemoglobin 11.9 g/dL (11.7-16.6); Lymphocytes # 2.1 10^3/uL (0.8-4.8); Lymphocytes % 39.6 %; Mean Corpuscular HGB Conc 34.5 g/dL (30.0-36.0); Mean Corpuscular Volume 92.7 fl (80-94); Mean Platelet Volume 10.1 fL (7.4-10.4); Monocytes # 0.5 10^3/uL (0.2-0.9); Monocytes % 9.8 %; Neutrophils # 2.37 10^3/uL (1.8-7.7); Neutrophils % 44.9 %; Nucleated Red Blood Cells % 0 %; Platelet Count 222 10^3/cmm (130-400); Red Blood Count 3.72 10^6/uL (4.1-5.3); Red Cell Distribution Width 13.1 % (12.1-15.1); White Blood Count 5.3 10^3/uL (4.0-10.0)
[2022-03-11 03:52] LABS: Alanine Aminotransferase 13 U/L (0-41); Albumin Level 3.3 g/dL (3.5-5.2); Alkaline Phosphatase 64 IU/L (40-130); Anion Gap 14.3 (5-19); Aspartate Amino Transferase 26 U/L (0-40); Blood Urea Nitrogen 32 mg/dL (8-23); Calcium 8.2 mg/dL (8.5-10.5); Carbon Dioxide 20 mmol/L (22-29); Chloride 108 mmol/L (98-107); Glomerular Filtration Rate 31.5 mL/min (90-130); Glucose 101 mg/dL (65-115); Magnesium 1.9 mg/dL (1.7-2.3); Osmolality Calculated 293 mOsm/kg (285-295); Phosphorus 3.8 mg/dL (2.5-4.5); Potassium 4.3 mmol/L (3.5-5.1); Sodium 138 mmol/L (136-145); Total Bilirubin 0.2 mg/dL (0.15-1.2); Total Protein 5.3 g/dL (6.6-8.7)
[2022-03-11 04:25] LABS: Creatine Phosphokinase 514 U/L (39-308)
[2022-03-11 07:33] VITALS: BP 135/71; PULSE 50; RESP 14; TEMP 36.9; O2SAT 98
--- NOTE | 2022-03-11 08:14 | USCV_ITS ---
Ras Burnham Age: 71 Gender: M : 1950 Exam Date: 03/11/2022 08:48 Ordering Phys: Amari Altamirano MD Technologist: JARON Exam Location: [facility] [place] Indication: bradycardia, dehydration, renal impairment, which has returned to normal with IV hydration. No hx cardiac intervention BP: 135 / 71 HR: 41 Rhythm: Sinus bradycardia Technical Quality: Adequate MEASUREMENTS (Male / Female) Normal Values 2D ECHO LV Diastolic Diameter PLAX 4.7 cm 4.2 - 5.9 / 3.9 - 5.3 cm LV Systolic Diameter PLAX 2.9 cm IVS Diastolic Thickness 0.8 cm 0.6 - 1.0 / 0.6 - 0.9 cm IVS Systolic Thickness 1.6 cm LVPW Diastolic Thickness 1.2 cm 0.6 - 1.0 / 0.6 - 0.9 cm LVPW Systolic Thickness 1.6 cm LVOT Diameter 2.1 cm LV Ejection Fraction 2D Teich 68.9 % LV Ejection Fraction MOD 2C 67.0 % LV Ejection Fraction 2C AL 66.7 % LA Diameter 3.4 cm LA Width 3.4 cm LA Height 4.5 cm RA Width 3.8 cm RA Height 4.8 cm Aorta at Sinotubular Diameter 3.2 cm IVC Diameter 1.6 cm M-MODE Aortic Annulus Diameter 3.7 cm LA Ao Ratio MM 0.9 MV E Point Septal Separation 0.5 cm DOPPLER AV Peak Velocity 105.0 cm/s LVOT Peak Velocity 86.0 cm/s AV Area Cont Eq vti 3.2 cm squared AV Area Cont Eq pk 2.8 cm squared MV Peak Velocity 79.0 cm/s MV Area PHT 2.0 cm squared Mitral E to A Ratio 2.0 MV E' Velocity 40.0 cm/s Mitral E to MV E' Ratio 8.4 Mitral E to LV E' Lateral Ratio 8.2 Mitral E to LV E' Septal Ratio 8.7 TR Peak Velocity 224.3 cm/s TR Peak Gradient 20.1 mmHg TV Peak E Velocity 43.0 cm/s Right Atrial Pressure 5.0 mmHg Pulmonary Artery Systolic Pressu 25.1 mmHg PV Peak Velocity 92.0 cm/s RV Acceleration Time 0.1 s RV Ejection Time 0.4 s RV AcT/ET 0.3 FINDINGS Left Ventricle Normal left ventricular size and systolic function, EF 71 %. No regional wall motion abnormalities. Right Ventricle The right ventricle is normal in size and function. Right Atrium Normal right atrial size Left Atrium Normal left atrial size Mitral Valve Thickened mitral valve. Mild mitral valve regurgitation. Aortic Valve Thickened aortic valve. Tricuspid Valve Trace to mild tricuspid valve regurgitation. Pulmonic Valve No gross abnormalities noted Pericardium Normal pericardium without effusion. Aorta Normal ascending aorta dimension. IVC Appears mildly dilated with complete collapsibility. RA pressure of 8 mmHg. CONCLUSIONS Normal left ventricular size and systolic function, EF 71 %. No regional wall motion abnormalities. Thickened mitral valve. Mild mitral valve regurgitation. Thickened aortic valve. Trace to mild tricuspid valve regurgitation. Trace to mild tricuspid valve regurgitation. There is no pericardial effusion. There are no intracardiac masses. No similar previous studies are available for comparison Dr Eduin Morse MD [facility] (Electronically Signed) Final Date: 11 March 2022 23:34 S
--- NOTE | 2022-03-11 10:14 | ECG_ITS ---
[facility] Test Date: 2022-03-11 Pat Name: Ras Burnham Department: Room: 278 Gender: Male Director Digital Advertising: : 1950 Requested By: Amari Altamirano Order Number: [id number] Kanika MD: Florencia Gray M.D. Measurements Intervals [place] Rate: 46 P: 53 CT: 157 QRS: 31 QRSD: 91 T: 62 QT: 470 QTc: 413 Interpretive Statements SINUS BRADYCARDIA Compared to ECG 03/10/2022 13:23:48 No significant changes Electronically Signed On 03-11-2022 22:24:16 CDT by Florencia Gray M.D. [id number]
--- NOTE | 2022-03-11 11:26 | PM.DCS ---
Discharge Providers Date of Admission: 03/10/22 16:00 Date of Discharge: March 11, 2022 Attending Provider at Admission: Giles Reich MD Attending Provider at Discharge: Amari Altamirano MD Primary Care Provider: Amos Parker MD Diagnoses at Discharge Discharge Diagnosis (1) Acute kidney injury superimposed on chronic kidney disease: Status: Resolved (2) High anion gap metabolic acidosis: Status: Resolved (3) Generalized weakness: Status: Resolved (4) Transaminitis: Status: Resolved (5) Hematuria: Status: Inactive (6) Elevated blood pressure reading without diagnosis of hypertension: Status: Resolved (7) Tobacco use disorder: Status: Inactive (8) Rhabdomyolysis: Status: Resolved Reason for Visit Reason for Visit: dizziness and right side pain Hospital Course Hospital Course This is a 71-year-old male who presents [facility] with chronic kidney disease, due to generalized weakness Patient was admitted to [facility] for acute kidney injury, secondary to dehydration, rhabdomyolysis, patient admits to working outside during the local heat wave, creatinine on admission was 3.8, elevated CPK, received IV hydration, CT abdomen pelvis with no acute findings. Patient received IV fluids, clinically improved, creatinine discharge was 2.1, CPK 540. Patient was advised to drink plenty of electrolyte balance fluids on discharge, avoid the heat, follow-up with primary care provider in 1 week. Patient was also found to have sinus bradycardia throughout his hospitalization, relatively asymptomatic, ambulating without symptomatology, cardiac echocardiogram within normal limits, will have patient follow-up with primary care as outpatient. Physical Exam Const: COMMON NORMALS: no acute distress and patient oriented x3 Resp: COMMON NORMALS: normal respiratory effort, No retractions, No use of accessory muscles and clear to auscultation bilaterally AUSCULTATION: clear to auscultation bilaterally Cardio: COMMON NORMALS: regular rate, regular rhythm, S1 normal heart sound present and S2 normal heart sound present RATE: regular rate RHYTHM: regular rhythm HEART SOUNDS: S1 normal heart sound present and S2 normal heart sound present GI: COMMON NORMALS: Normal to inspection, nondistended, normoactive bowel sounds present, Soft to palpation and non-tender PALPATION: Yes Soft to palpation Extremity: COMMON NORMALS: no pedal edema Neuro: COMMON NORMALS: patient oriented x3 Psych: COMMON NORMALS: mental status grossly normal Discharge Data Studies Completed and Pending Completed Studies During Hospitalization Category Date Time Status CT abdomen renal stone [CT kidney stone [id number]] Stat Cat Scan 03/09/22 20:[address] head wo con* [id number] Urgent Cat Scan 03/09/22 20:27 Completed US renal BI* [id number] Routine Ultrasound 03/10/22 03:40 Completed Pending at discharge Category Date Time Status Complete Blood Count w/Auto AM LABS Lab 03/12/22 04:00 Ordered Complete Blood Count w/Auto AM LABS Lab 03/13/22 04:00 Ordered Comprehensive Metabolic Panel AM LABS Lab 03/12/22 04:00 Ordered Comprehensive Metabolic Panel AM LABS Lab 03/13/22 04:00 Ordered Creatine Phosphokinase AM LABS Lab 03/12/22 04:00 Ordered Creatine Phosphokinase AM LABS Lab 03/13/22 04:00 Ordered Magnesium AM LABS Lab 03/12/22 04:00 Ordered Magnesium AM LABS Lab 03/13/22 04:00 Ordered Osmolality Urine Routine Lab 03/09/22 18:30 Received Phosphorus AM LABS Lab 03/12/22 04:00 Ordered Phosphorus AM LABS Lab 03/13/22 04:00 Ordered Troponin(5th) 2 Hour. Timed Lab 03/11/22 10:14 Ordered Troponin(5th) 6 hour. Timed Lab 03/11/22 14:14 Ordered Troponin(5th) Baseline Stat Lab 03/11/22 08:14 Ordered CV. echo complete* [id number] Routine Ultrasound 03/11/22 08:14 Taken Radiology Impressions Abdomen/Pelvis CT 03/09/22 20:27 IMPRESSION: 1. No acute finding. 2. Diverticulosis of the colon. Head CT 03/09/22 20:27 IMPRESSION: No acute intracranial abnormality. Renal Ultrasound 03/10/22 03:40 IMPRESSION: 1. Mild bilateral renal atrophy with no hydronephrosis. 2. Well-distended urinary bladder. Laboratory Results WBC 5.3 10^3/uL (4.0-10.0) 03/11/22 03:23 RBC 3.72 10^6/uL (4.1-5.3) L 03/11/22 03:23 Hgb 11.9 g/dL (11.7-16.6) 03/11/22 03:23 Hct 34.5 % (42.0-52.0) L 03/11/22 03:23 MCV 92.7 fl (80-94) 03/11/22 03: MCH 32.0 pg (28.0-34.0) 03/11/22 03: MCHC 34.5 g/dL (30.0-36.0) 03/11/22 03: RDW 13.1 % (12.1-15.1) 03/11/22 03:23 Plt Count 222 10^3/cmm (130-400) 03/11/22 03: MPV 10.1 fL (7.4-10.4) 03/11/22 03:23 Neut % (Auto) 44.9 % 03/11/22 03:23 Lymph % (Auto) 39.6 % 03/11/22 03:23 [place] % (Auto) 9.8 % 03/11/22 03: Eos % (Auto) 4.4 % 03/11/22 03: Baso % (Auto) 0.9 % 03/11/22 03: Neut # (Auto) 2.37 10^3/uL (1.8-7.7) 03/11/22 03: Lymph # (Auto) 2.1 10^3/uL (0.8-4.8) 03/11/22 03: [place] # (Auto) 0.5 10^3/uL (0.2-0.9) 03/11/22 03: Eos # (Auto) 0.2 10^3/uL (0.0-0.8) 03/11/22 03: Baso # (Auto) 0.1 10^3/uL (0.0-0.1) 03/11/22 03: Nucleated RBC % (auto) 0 % 03/11/22 03: Nucleated RBCs # 0.0 /100WBC 03/11/22 03:23 Sodium 138 mmol/L (136-145) 03/11/22 03:23 Potassium 4.3 mmol/L (3.5-5.1) 03/11/22 03:23 Chloride 108 mmol/L (98-107) H 03/11/22 03:23 Carbon Dioxide 20 mmol/L (22-29) L 03/11/22 03:23 Anion Gap 14.3 (5-19) 03/11/22 03:23 BUN 32 mg/dL (8-23) H 03/11/22 03:23 Creatinine 2.1 mg/dL (0.7-1.2) H 03/11/22 03:23 GFR Calculation 31.5 mL/min (90-130) L 03/11/22 03:23 Glucose 101 mg/dL (65-115) 03/11/22 03:23 Calculated Osmolality 293 mOsm/kg (285-295) 03/11/22 03:23 Calcium 8.2 mg/dL (8.5-10.5) L 03/11/22 03:23 Phosphorus 3.8 mg/dL (2.5-4.5) 03/11/22 03:23 Magnesium 1.9 mg/dL (1.7-2.3) 03/11/22 03:23 Total Bilirubin 0.2 mg/dL (0.15-1.2) 03/11/22 03:23 AST 26 U/L (0-40) 03/11/22 03:23 ALT 13 U/L (0-41) 03/11/22 03:23 Alkaline Phosphatase 64 IU/L (40-130) 03/11/22 03:23 Creatine Kinase 514 U/L (39-308) H* 03/11/22 03:23 Total Protein 5.3 g/dL (6.6-8.7) L 03/11/22 03:23 Albumin 3.3 g/dL (3.5-5.2) L 03/11/22 03:23 Globulin 2.0 g/dL (1.3-4.6) 03/11/22 03:23 Urine Color Yellow (Yellow) 03/09/22 22:48 Urine Appearance Clear (CLEAR) 03/09/22 22:48 Urine pH 5 (5-7) 03/09/22 22:48 Ur Specific Wilson 1.025 (1.005-1.030) 03/09/22 22:48 Urine Protein Trace (Negative) 03/09/22 22:48 Urine Glucose (UA) Norm (Normal) 03/09/22 22:48 Urine Ketones Negative (Negative) 03/09/22 22:48 Urine Blood 3+ (Negative) H 03/09/22 22:48 Urine Nitrate Negative (Negative) 03/09/22 22:48 Urine Bilirubin Neg (Negative) 03/09/22 22:48 Urine Urobilinogen Norm mg/dL (Negative) 03/09/22 22:48 Ur Leukocyte Esterase Negative (Negative) 03/09/22 22:48 Urine RBC 0-4 /hpf (0-2) H 03/09/22 22:48 Urine WBC 0-4 /hpf (0-5) H 03/09/22 22:48 Ur Squamous Epith Cells 0-4 /hpf (0-5) H 03/09/22 22:48 Amorphous Sediment 1+ /hpf 03/09/22 22:48 Urine Bacteria Trace /hpf (NONE) 03/09/22 22:48 Hyaline Casts 0-4 /lpf H 03/09/22 22:48 Ur Random Sodium 101 mmol/L 03/09/22 18:30 Ur Random Potassium 19 mmol/L 03/09/22 18:30 Ur Random Chloride 88 mmol/L 03/09/22 18:30 Ur Random Urea Nitrogn 626 mg/dL 03/09/22 18:30 Urine Creatinine 104 mg/dL (39-259) 03/09/22 18:30 Vitals Last Vital Signs Temp 98.5 F 03/11/22 07:33 Pulse 50 L 03/11/22 07:33 Resp 14 03/11/22 07:33 BP 135/71 03/11/22 07:33 Pulse Ox 98 03/11/22 07:33 Discharge Plan Discharge Patient Disposition: Home Condition: Stable Prescriptions: Continued cetirizine 10 mg Tablet 10 mg PO DAILY PRN (Reason: Allergy Symptoms) 0RF Ventolin HFA 90 mcg/actuation Hfa Aerosol Inhaler 1 puff INHALATION QID PRN (Reason: Shortness Of Breath) 0RF Symbicort 160-4.5 mcg/actuation Hfa Aerosol Inhaler 2 puff INHALATION BID 0RF Discharge Orders: Discharge Order (Routine); Ordered 03/11/22 Ordered By: Amari Altamirano Referrals: Ricardo Gonzalez DO [Referring] - 03/18/22 2:00 pm (APPOINTMENT AT [facility]) Discharge Diet: Regular Discharge Activity: Resume usual activity Patient Instructions: Rhabdomyolysis (GEN), Opioid Safety, Weakness (Generalized) Activity Restrictions/Additional Instructions: - Drink plenty of electrolyte balance fluids such as Gatorade or Powerade -Avoid the heat, try to remain cool -Follow-up with primary care provider in 1 week Discharge Attestations Time Spent in Discharge Care*: less than 30 min Quality Metrics Clinical Quality Measures [ No reported AMI, CVA or VTE this stay] Coding Level of Care Code Acute Chg FW DC note Exam Detailed Diagnoses Acute kidney injury superimposed on chronic kidney disease N17.9; N18.9 High anion gap metabolic acidosis E87.2 Generalized weakness R53.1 Transaminitis R74.01 Hematuria R31.9 Elevated blood pressure reading without diagnosis of hypertension R03.0 Tobacco use disorder F17.200 Rhabdomyolysis M62.82
[2022-03-11 11:30] VITALS: PULSE 55; RESP 18; O2SAT 98
[2022-03-11 11:58] LABS: Troponin(5th) Baseline 18 ng/L (0-15)
[2022-03-11 11:59] VITALS: BP 144/71; PULSE 48; RESP 16; TEMP 36.9; O2SAT 93
--- NOTE | 2022-03-11 14:14 | ECG_ITS ---
[facility] Test Date: 2022-03-11 Pat Name: Ras Burnham Department: Room: 278 Gender: Male Production Department Supervisor: : 1950 Requested By: Amari Altamirano Order Number: [id number] Kanika MD: Florencia Gray M.D. Measurements Intervals [place] Rate: 47 P: 49 [place]: 150 QRS: 33 QRSD: 89 T: 61 QT: 438 QTc: 390 Interpretive Statements SINUS BRADYCARDIA Compared to ECG 03/11/2022 10:21:28 No significant changes Electronically Signed On 03-11-2022 22:23:18 CDT by Florencia Gray M.D. [id number]
[2022-03-11 18:04] LABS: Troponin 5 2HR 15.44 ng/L (0-15)
[2022-03-11 18:06] LABS: Troponin 5 2HR Delta -2.56 ABS# (0-10)
[2022-03-12 16:12] LABS: Osmolality Urine 587 mOsm/kg (50-1200)
== END 2022-03-11 15:46 | disposition home or self-care (01) | DRG 683 ==
LOC: ER 23:02 → MEDSURG 23:47
PROVIDERS: Emergency Medicine; Admitting Provider Internal Medicine; Emergency Provider Emergency Medicine; PCP Family Medicine; Visit Provider Family Medicine
DX: N17.9 Acute kidney failure, unspecified (principal); E87.2 Acidosis; M62.82 Rhabdomyolysis; J44.9 Chronic obstructive pulmonary disease, unspecified; F10.10 Alcohol abuse, uncomplicated; F17.200 Nicotine dependence, unspecified, uncomplicated; N18.9 Chronic kidney disease, unspecified; R03.0 Elevated blood-pressure reading, without diagnosis of hypertension; E86.0 Dehydration
CPT/HCPCS: 36415; 51798; 70450; 74176; 76770; 76857; 80053; 81001; 82436; 82550; 82570; 83735; 83935; 84100; 84133; 84300; 84484; 84540; 85025; 93005; 93306; 96372; 99285; G0378; J1644; J7030

== ENCOUNTER → 2022-04-17 07:33 | Outpatient (BNVA) | payer MEDICARE, MEDICAID, SELFPAY | PROVIDERS: PCP Family Medicine; Visit Provider Urology | DX: K40.91 Unilateral inguinal hernia, without obstruction or gangrene, recurrent (principal); N18.9 Chronic kidney disease, unspecified; R31.21 Asymptomatic microscopic hematuria | CPT/HCPCS: 81003; 99203; 99213 ==

== ENCOUNTER 2022-05-11 06:01 | Day surgery (SDC) | payer MEDICARE, MEDICAID, SELFPAY ==
[2022-05-08 12:11] VITALS: BMI 21.2
[2022-05-11] VITALS (9 sets, daily range): BP systolic 135–164; BP diastolic 62–97; PULSE 56–75; RESP 16–23; TEMP 36.5–36.9; O2SAT 90–100
[2022-05-11] MEDS: sodium chloride 0.9% 1,000 ML 30 ML IV (06:30)
--- NOTE | 2022-05-11 06:36 | W.PM.OPSUD ---
Surgery/Procedure H&P Update DATE OF PROCEDURE: May 11, 2022 DATE H&P PERFORMED: 04/17/22 CHANGES TO PREVIOUS DOCUMENTATION: none PREOP DIAGNOSIS: Screening PLANNED PROCEDURE: Operation Date: 05/11/22 07:00 Proposed Procedures p HERNIA-INGUINAL RECURRENT-LAP RIGHT SIDE WITH MESH REPAIR 54027,K40.91(Not Applicable) - Jeremiah Man DO
[2022-05-11] MEDS: ceFAZolin 2,000 MG in sodium chloride 0.9% (plus) 50 ML 100 MG IV (07:03)
--- NOTE | 2022-05-11 08:34 | P.OP_ITS ---
Operative Report Date of procedure: May 11, 2022 Pre-op diagnosis: Preop Diagnosis recurrent right inguinal hernia Post-op diagnosis: same Procedure done: Laparoscopic repair laparoscopic repair of recurrent right inguinal hernia with mesh Implants: Large 3D max right inguinal mesh Specimens removed/disposition: None Surgeon: Dr. Jeremiah Man DO Anesthesia: General Estimated blood loss: 5 Complications: None apparent Findings: Inferior and lateral recurrence Brief History: This is a very pleasant 72-year-old gentleman who underwent laparoscopic repair of a right inguinal hernia with mesh in 2014. This has recurred and required repair. Risks and benefits were explained and documented. Procedure: Patient was wheeled into the operative room and placed on the OR table in a supine position. Abdomen was inspected prepped and draped in usual sterile fashion. Time-out was performed and all present were in agreement. A 15 blade scalpel was used to make 1.2 centimeter incision infraumbilically. Combination of sharp and blunt dissection was performed down to the anterior rectus sheath which was opened sharply. The dissecting balloon was then inserted into the space of Retzius and blown up. We put the camera into the port and identified that we were in the correct space. I then placed 2 5 millimeter trocars suprapubically in the midline. I then used endokitners to bluntly dissect in the space of Retzius out laterally. A recurrent right inguinal hernia was identified on the. The recurrence was on the lateral aspect of the defect and inferior to the mesh. Blunt dissection was performed to dissect down the hernia sac until the vas deferens dove medially. A large right inguinal mesh was then placed into the space of Retzius. The mesh was unrolled and tacked once medially at the pubic bone. The mesh laid out nicely over the spermatic cord. Clip chief hydroelectric station operator was then used to close a hole in the peritoneum. I watched the hernia sac remained in place as insufflation was removed. Incisions were closed with 4 O Vicryl in a subcuticular interrupted fashion. Skin glue was applied. Patient tolerated the procedure well.
--- NOTE | 2022-05-11 08:38 | P.ANESASSM_ITS ---
Pre-Anesthetic Assessment Height/Weight: Height 1.78 m Weight 67.132 kg Temp Pulse Resp BP Pulse Ox O2 Del Method 97.7 F 56 L 18 137/90 97 05/11/22 06:17 05/11/22 06:17 05/11/22 06:17 05/11/22 06:17 05/11/22 06:17 05/11/22 06:19 Preop Diagnosis: Screening Operation Date: 05/11/22 07:00 Proposed Procedures p HERNIA-INGUINAL RECURRENT-LAP RIGHT SIDE WITH MESH REPAIR 36121,K40.91(Not Applicable) - Jeremiah Man DO Familial anesthetic complications: none Was Beta Hussain taken within 24 hours: N/A Was Clonidine taken within 24 hours: N/A Last intake: Intake Last Liquid Date 05/10/22 Last Liquid Time 21:30 Last Solid Date 05/10/22 Last Solid Time 20:00 Social Tobacco and No alcohol Exam alert, oriented x 3 and regular rate & rhythm Airway Submandibular: within normal limits Cervical ROM: within normal limits Mallampati: Class II Dentition: false (upper) Pulmonary Chronic Obstructive Pulmonary Disease CV/HEM Hypertension Chronic Renal Insufficiency Anesthetic Plan ASA status: 3 Anesthesia: General Medications/Allergies Home Medications Medication Instructions Recorded Confirmed Last Taken Type albuterol sulfate 90 mcg/actuation 1 puff inhalation QID PRN 03/09/22 05/08/22 Unknown History aerosol inhaler (Ventolin HFA) Shortness Of Breath budesonide-formoterol HFA 160 2 puff inhalation BID PRN 03/09/22 05/08/22 Unknown History mcg-4.5 mcg/actuation aerosol Shortness Of Breath inhaler (Symbicort) cetirizine 10 mg tablet 10 mg PO DAILY PRN Allergy Symptoms 03/09/22 05/08/22 Unknown History aspirin 81 mg chewable tablet 81 mg PO DAILY 04/22/22 05/08/22 Unknown History Allergies Allergy/AdvReac Type Severity Reaction Status Date / Time No Known Allergies Allergy Verified 05/08/22 12:09 [facility] Anesthesia Medical History Alcohol use disorder, moderate, in sustained remission Hematuria Tobacco use disorder Surgical History H/O hernia repair abdominal History of appendectomy Hx of shoulder surgery Right Family History Father , in his late 80's Alzheimer's dementia Cancer Mother , in her 70's No problems noted. Social History Smoking and tobacco status: current every day smoker Alcohol intake: former Marital status: Current occupational status: disabled History of recent travel: No Data Anesthesia Cardiac Studies: Echocardiogram 03/11/22
[2022-05-11] MEDS: fentaNYL 50 mcg/mL INJ 2mL IVP (08:49)
[2022-05-11] MEDS: HYDROcodone-acetaminophen 7.5-325 mg Tablet 1 TAB PO (09:45)
--- NOTE | 2022-05-11 13:02 | ANE.PACU2 ---
Inpatient post-anesthesia follow up: Airway intact: Yes Vital signs: Temperature 98.4 F Pulse Rate 61 Respiratory Rate 18 Blood Pressure 136/69 Pulse Oximetry 92 Oxygen Delivery Me thod Room Air Oxygen Flow Rate Fraction of Inspir ed Oxygen Hydration adequate: Yes Nausea and vomiting: No Pain level: 3 Mental status: Baseline
== END 2022-05-11 09:55 | disposition home or self-care (01) ==
PROVIDERS: PCP Family Medicine; Visit Provider Surgery
PROC: (CPT 49650; principal; 2022-05-11 07:00)
DX: K40.91 Unilateral inguinal hernia, without obstruction or gangrene, recurrent (principal); J44.9 Chronic obstructive pulmonary disease, unspecified; I10 Essential (primary) hypertension; Z79.82 Long term (current) use of aspirin; F17.210 Nicotine dependence, cigarettes, uncomplicated
CPT/HCPCS: 49651; 51702; C1781; J1100; J2370; J2405; J2704; J2710; J3010; J3490; J7030

== ENCOUNTER → 2022-05-27 13:33 | Outpatient (BNVA) | payer MEDICARE, MEDICAID, SELFPAY | PROVIDERS: PCP Family Medicine; Visit Provider Surgery | DX: Z48.89 Encounter for other specified surgical aftercare (principal) | CPT/HCPCS: 99024 ==

== ENCOUNTER → 2022-07-16 08:53 | Outpatient (BNVA) | payer MEDICARE, MEDICAID, SELFPAY | PROVIDERS: PCP Family Medicine; Visit Provider Urology | DX: R31.21 Asymptomatic microscopic hematuria (principal) | CPT/HCPCS: 81003; 99213 ==

== ENCOUNTER 2022-10-30 13:01 | Emergency (ER) | payer MEDICARE, MEDICAID, SELFPAY ==
[2022-10-30 13:39] VITALS: BP 129/86; PULSE 79; RESP 18; TEMP 36.6; O2SAT 94; BMI 22.0
--- NOTE | 2022-10-30 13:44 | XR_ITS ---
WS: [id number] Lumbar spine, 3 views, 10/30/2022 Clinical Data: fall injury Comparison: Lumbar spine, 06/18/2011. Findings: No compression fractures or increased subluxation is seen. There is degenerative disc narrowing at al l levels from L1-L2 through L4-L5. There is moderate anterior osteoarthritic spurring L1-L5. The barry sverse processes and SI joints are normal. There are surgical clips in the right side of the true pelvis. XR/XR lumbar spine 2-3V* [id number] Impression: Degenerative disc narrowing and moderate osteoarthritic spurring unchanged.
--- NOTE | 2022-10-30 13:44 | XR_ITS ---
WS: [id number] Thoracic spine, 3 views, 10/30/2022 Clinical Data: back pain after fall Comparison: None. Findings: There is a minimal wedge deformity of the T8 vertebral body with loss of slightly more than 25% of th e anterior central vertebral body height. There is a dextroscoliosis and diffuse osteoporosis. The pa ravertebral regions are normal. XR/XR thoracic spine 3V* [id number] Impression: 1. Minimal wedge deformity of T8 vertebral body which could represent a minimal acute compression fracture. 2. Osteoporosis and dextroscoliosis of the thoracic spine.
--- NOTE | 2022-10-30 13:44 | XR_ITS ---
WS: [id number] Chest with left rib detail, 10/30/2022 Clinical Data: rib pain Comparison: Portable chest, 09/11/2019. Findings: The lungs show no nodules, masses, or effusions. The heart is normal. No pneumonia or pneumothorax is seen. There is a dextroscoliosis of the thoracic spine. There are old posterior lateral right eighth and ni nth rib fractures. There is an orthopedic anchors in the proximal right humerus. There is an undisplaced fracture of the posterior lateral left eighth rib. No pneumothorax or subcuta neous emphysema is seen. The remainder of the left ribs show no fractures. XR/XR ribs LT mn 3V w CXR1V [id number] Impression: 1. New undisplaced fracture of the posterior lateral aspect of the left eighth rib. 2. Old fractures of the right posterior lateral eighth and ninth ribs.
--- NOTE | 2022-10-30 13:48 | W.ED.FALL ---
HPI - Fall General: Chief Complaint: Fall Stated Complaint: fall, back pain Time Seen by Provider: 10/30/22 13:47 History of Present Illness: Patient is a 72-year-old male who comes to the ED after having a fall. He is complaining of back and left side rib and chest pain. Patient says he slipped and fell approximately 2 hours ago on some ice. He rates his pain currently an 8 out of 10. Associated symptoms-after fall: Denies abdominal pain, chest pain, headache(s), hematuria or neck pain Review of Systems Const: Denies: fever(s), chills or fatigue Eyes: Denies: change in vision or eye discomfort ENMT: Denies: throat pain, odynophagia, nasal discharge or nasal congestion Card: Denies: chest pain, palpitations, edema, swelling of feet/ankles, dyspnea on exertion or orthopnea Resp: Denies: dyspnea, productive cough or non-productive cough GI: Denies: abdominal pain, nausea, vomiting, diarrhea, constipation or hematochezia : Denies: flank pain, difficulty urinating, dysuria or hematuria Musc: Denies: neck pain, back pain or extremity swelling Skin/Breast: Denies: rash or new lesions Neuro: Denies: headache(s), numbness in extremities or weakness in extremities PFSH ED PFSH: Medical History Alcohol use disorder, moderate, in sustained remission Chronic obstructive airway disease Hematuria Tobacco use disorder Surgical History H/O hernia repair abdominal History of appendectomy Hx of shoulder surgery Right Family History Father , in his late 80's Alzheimer's dementia Cancer Mother , in her 70's No problems noted. Social History Smoking and tobacco status: current every day smoker Alcohol intake: former Marital status: Current occupational status: disabled History of recent travel: No Physical Exam Const: COMMON NORMALS: patient oriented x3 HENMT: COMMON NORMALS: normocephalic HEAD & SCALP: normocephalic MOUTH: Normal oral and palatal mucosa present THROAT: posterior oropharynx normal and uvula midline Neck/C-Spine: COMMON NORMALS: supple GENERAL: Yes normal visual inspection Chest: CHEST: Yes tenderness rib left mid-scapular line Resp: COMMON NORMALS: normal respiratory effort, No retractions, No use of accessory muscles and clear to auscultation bilaterally AUSCULTATION: clear to auscultation bilaterally Cardio: COMMON NORMALS: regular rate, regular rhythm, S1 normal heart sound present, S2 normal heart sound present, No gallops present (Cardio), No clicks present (Cardio), No murmurs present (Cardio) and Peripheral pulses 2+ throughout RATE: regular rate RHYTHM: regular rhythm HEART SOUNDS: S1 normal heart sound present and S2 normal heart sound present PERIPHERAL PULSES: Peripheral pulses 2+ throughout GI: COMMON NORMALS: Normal to inspection, nondistended, normoactive bowel sounds present, Soft to palpation, non-tender and no masses PALPATION: Yes Soft to palpation : COMMON NORMALS: Yes no CVA tenderness BLADDER/KIDNEY EXAM: Yes no CVA tenderness Back/Pelvis: COMMON NORMALS: no CVA tenderness THORACIC SPINE/UPPER BACK: Yes thoracic spinal tenderness and Yes paraspinal muscle tenderness Extremity: COMMON NORMALS: normal to inspection Neuro: COMMON NORMALS: patient oriented x3 GAIT: Yes Normal gait present Skin: GENERAL SKIN EXAM: dry skin Course Vital Signs: Vital signs: Vital Signs Temperature 98 F 10/30/22 13:39 Pulse Rate 79 10/30/22 13:39 Respiratory Rate 18 10/30/22 13:39 Blood Pressure 129/86 10/30/22 13:39 Pulse Oximetry 94 10/30/22 13:39 Oxygen Delivery Me thod 10/30/22 13:39 MDM - Fall Medical Decision Making Patient is a 72-year-old male who comes to the ED after having a fall. He is complaining of back and left side rib and chest pain. Patient says he slipped and fell approximately 2 hours ago on some ice. He rates his pain currently an 8 out of 10. Vitals are stable. Patient has some thoracic spinal tenderness and thoracic paraspinal muscle tenderness. He also has some left posterior rib tenderness as well. Lumbar x-ray shows degenerative disc narrowing that appears unchanged compared to previous exam. Rib x-ray shows a new displaced fracture of the posterior lateral aspect of left eighth rib. Thoracic spine x-ray shows T8 vertebral body wedge deformity suggesting acute compression. I placed order with case management for patient referred to Dr. Hart for follow-up on Thoracic compression fracture. He was put in a TLSO brace. Patient diagnosed with compression fracture of thoracolumbar vertebrae and closed rib fracture. He was stable for discharge home and sent home with a prescription for hydrocodone for pain. Return to ED precautions given. Follow-up with PCP in the next week for reevaluation. Patient understood and agreed with plan. Lab Data Radiology Impressions Lumbar Spine X-Ray 10/30/22 13:44 Impression: Degenerative disc narrowing and moderate osteoarthritic spurring unchanged. Ribs X-Ray 10/30/22 13:44 Impression: 1. New undisplaced fracture of the posterior lateral aspect of the left eighth rib. 2. Old fractures of the right posterior lateral eighth and ninth ribs. Thoracic Spine X-Ray 10/30/22 13:44 Impression: 1. Minimal wedge deformity of T8 vertebral body which could represent a minimal acute compression fracture. 2. Osteoporosis and dextroscoliosis of the thoracic spine. Discharge Plan Discharge Patient Disposition: Home Clinical Impression: Compression fracture of thoracolumbar vertebra Qualifiers: Encounter type: initial encounter Fracture type: closed Qualified Code(s): S22.080A - Wedge compression fracture of T11-T12 vertebra, initial encounter for closed fracture Closed rib fracture Qualifiers: Encounter type: initial encounter Rib fracture type: single rib Laterality: left Qualified Code(s): S22.32XA - Fracture of one rib, left side, initial encounter for closed fracture Condition: Stable Prescriptions: No Action aspirin 81 mg tablet,chewable 81 mg PO DAILY hydrocodone-acetaminophen 7.5-325 mg tablet 1 tab PO Q6H PRN (Reason: pain) Qty: 20 0RF cetirizine 10 mg Tablet 10 mg PO DAILY PRN (Reason: Allergy Symptoms) albuterol sulfate [Ventolin HFA] 90 mcg/actuation Hfa Aerosol Inhaler 1 puff INHALATION QID PRN (Reason: Shortness Of Breath) budesonide-formoterol [Symbicort] 160-4.5 mcg/actuation Hfa Aerosol Inhaler 2 puff INHALATION BID PRN (Reason: Shortness Of Breath) Discharge Orders: Discharge ED (Routine); Ordered 10/30/22 Ordered By: Giles Zhu Referrals: Ricardo Gonzalez, [Primary Care Provider] - Discharge Diet: Regular Discharge Activity: Increase activity as tolerated Patient Instructions: Rib Fracture (ED), Thoracolumbar Fracture (ED), Opioid Safety Activity Restrictions/Additional Instructions: Follow-up with medical provider as directed. Case management should be contacted in the next several days to set up an appointment with Dr. Hart orthospine specialist. Take medications as prescribed. Return to the ER or your medical provider if condition worsens. Please read and understand discharge instructions. Thank you for choosing [facility] for your healthcare needs today. Please realize this is an emergency room and that we are providing you with a medical screening exam and this may not be complete and all inclusive of all the testing and or work up that you may need to determine your ailment or severity of your illness. It is very important that you follow up as instructed or that you return to the Emergency Department should you have concerns or if your condition changes or worsens in any way. Coding Level of Care Code ED Usability Specialist for Erik Mcguire Exam Comprehensive
[2022-10-30] MEDS: HYDROcodone-acetaminophen 7.5-325 mg Tablet 1 TAB PO (14:32)
--- NOTE | 2022-11-02 09:34 | DCPLANNER ---
Addendum entered by Kelly Borrego 11/05/22 16:44: Patient had a follow up appointment scheduled with ortho - patient did attend appointment. Original Note: food services manager had message to schedule a follow up appointment for patient with ortho. food services manager sent patients information to the front office staff at ortho. Patients information will be printed and reviewed. Clinic will call patient with appointment information.
== END 2022-10-30 15:43 | disposition home or self-care (01) ==
PROVIDERS: Emergency Provider Physician Assistant; PCP Family Medicine
DX: S22.080A Wedge compression fracture of T11-T12 vertebra, initial encounter for closed fracture (principal); S22.32XA Fracture of one rib, left side, initial encounter for closed fracture; Z79.82 Long term (current) use of aspirin; F17.210 Nicotine dependence, cigarettes, uncomplicated; J44.9 Chronic obstructive pulmonary disease, unspecified; W00.0XXA Fall on same level due to ice and snow, initial encounter
CPT/HCPCS: 71101; 72072; 72100; 97760; 99283; L0456

== ENCOUNTER → 2022-11-03 10:03 | Outpatient (BNVA) | payer MEDICARE, MEDICAID, SELFPAY | PROVIDERS: PCP Family Medicine; Referring Provider Physician Assistant; Visit Provider Physician Assistant | DX: S22.080A Wedge compression fracture of T11-T12 vertebra, initial encounter for closed fracture (principal); S32.010A Wedge compression fracture of first lumbar vertebra, initial encounter for closed fracture; X58.XXXA Exposure to other specified factors, initial encounter | CPT/HCPCS: 99203 ==

== ENCOUNTER 2022-12-07 07:39 | Outpatient (CLI) | payer MEDICARE, MEDICAID, SELFPAY ==
--- NOTE | 2022-12-07 08:00 | MR_ITS ---
WS: [id number] MRI THORACIC SPINE WITHOUT CONTRAST TECHNIQUE: Sagittal T1, T2 and STIR imaging. Axial T2 imaging. Noncontrast imaging obtained. CLINICAL INFORMATION: compression fracture COMPARISON: None. FINDINGS: Mild thoracic curve. Cord signal is normal. No high-grade central canal stenosis. Chronic anterior we dging in the mid thoracic spine at worse at T7. No significant edema in this location. Disc space angel rowing worse at T10-T11. Mild to moderate facet arthropathy lower thoracic spine. Partially visualized edema at the edge of the imaging involving the LEFT proximal ribs at T5 T6 T7 an d T8 dorsal costovertebral junction. Correlation with rib pain. This can be further evaluated with ch est CT if indicated Normal caliber thoracic aorta. Tiny LEFT pleural effusion. Adrenal glands are normal. MR/MR thoracic spin wo con* [id number] IMPRESSION: 1. Mild chronic anterior wedging mid thoracic spine at T7. No edema in this lo cation. No acute appearing compression fractures. 2. Partially visualized edema at the edge of the imaging involving the LEFT pr oximal ribs at T5 T6 T7 and T8 costovertebral junction. Correlation with rib pa in. This can be further evaluated with chest CT if indicated 3. Tiny LEFT pleural effusion. 4. Mild thoracic kyphosis. 5. Mild disc space narrowing T10-T11. 6. Spinal canal is patent. Cord signal is normal.
== END 2022-12-07 07:40 | disposition home or self-care (01) ==
PROVIDERS: PCP Family Medicine; Visit Provider Physician Assistant
DX: M48.54XA Collapsed vertebra, not elsewhere classified, thoracic region, initial encounter for fracture (principal); J90 Pleural effusion, not elsewhere classified; M40.204 Unspecified kyphosis, thoracic region; M48.04 Spinal stenosis, thoracic region
CPT/HCPCS: 72146; 99203

== ENCOUNTER → 2022-12-22 12:40 | Outpatient (BNVA) | payer MEDICARE, MEDICAID, SELFPAY | PROVIDERS: PCP Family Medicine; Visit Provider Physician Assistant | DX: M51.34 Other intervertebral disc degeneration, thoracic region (principal) | CPT/HCPCS: 72070; 99213 ==